=== PATIENT | female | born 2005 | race Caucasian/White ===

== ENCOUNTER 2025-03-06 14:21 | Emergency (ER) | payer OTHER, SELFPAY ==
[2025-03-06] MEDS ORDERED: Ketorolac Tromethamine 30 MG (1 mL) VIAL ONE ×2 (16:03→16:14)
[2025-03-06] MEDS ORDERED: Azithromycin 250 MG TAB ONE (16:30)
== END 2025-03-06 16:40 | disposition home or self-care (01) ==
LOC: ERS 14:21
DX: T14.8XXA Other injury of unspecified body region, initial encounter (principal); J45.901 Unspecified asthma with (acute) exacerbation; J20.9 Acute bronchitis, unspecified; R51.9 Headache, unspecified; X58.XXXA Exposure to other specified factors, initial encounter
CPT/HCPCS: 71045; 87428; 96372; J1885; J2919; J7620; Q0162